=== PATIENT | male | born 1940 | race Caucasian/White ===

== ENCOUNTER 2024-10-04 08:36 | Inpatient (IN) | payer MEDICARE ==
[2024-10-04] MEDS ORDERED: Sodium Chloride 0.9% 10 ML Syringe FLUSH PRN (09:34)
[2024-10-04 09:47] LABS: HEMOGLOBIN 12.6 g/dL (12.9-16.9); MEAN CORPUSCULAR HEMOGLOBIN 30.9 pg (31.6-35.5); MEAN CORPUSCULAR HGB CONC 34.1 g/dL (31.6-35.5); MEAN CORPUSCULAR VOLUME 90.7 fL (81.4-99.0); PLATELET COUNT,PLT 56 K/uL (130-375); RED BLOOD CELL COUNT 4.08 M/uL (4.14-5.76); WHITE BLOOD CELL COUNT,WBC 18.2 K/uL (3.2-11.0)
[2024-10-04] MEDS: Sodium Chloride 0.9% 1,000 ML IV SCH ×2 (09:54→14:47)
[2024-10-04 10:21] LABS: BAND ABSOLUTE MAN 0.91 K/uL; BAND PERCENT MAN 5 % (5-11); LYMPHOCYTES ABSOLUTE MAN 0.18 K/uL (0.8-3.3); LYMPHOCYTES PERCENT MAN 1 % (24-44); NEUTROPHILS ABSOLUTE MAN 17.11 K/uL (1.0-7.6); SEG NEUTROPHILS PERCENT MAN 94 % (36-66)
[2024-10-04 10:24] LABS: A/G RATIO 0.8 (1.2-2.2); ALANINE AMINOTRANSFERASE,ALT 24 U/L (12-78); ALBUMIN 2.9 g/dL (3.4-5.0); ALKALINE PHOSPHATASE 88 U/L (46-116); ASPARTATE AMNIOTRANSFERASE,AST 41 U/L (15-37); BILIRUBIN TOTAL 0.5 mg/dL (0.2-1.0); CALCIUM 8.7 mg/dL (8.5-10.1); CARBON DIOXIDE,CO2 23 mmol/L (21-32); CHLORIDE,CL 93 mmol/L (100-108); ESTIMATED GFR 6 mL/min (>60); GLUCOSE RANDOM 116 mg/dL (74-106); PROTEIN TOTAL,TP 6.4 g/dL (6.4-8.2); SODIUM,NA 127 mmol/L (140-148)
[2024-10-04 10:26] LABS: ANION GAP 17.1 mmol/L (5.0-14.0); POTASSIUM,K 6.1 mmol/L (3.6-5.2)
[2024-10-04 10:28] LABS: BLOOD UREA NITROGEN,BUN 90 mg/dL (7-18)
[2024-10-04 10:29] LABS: CREATININE 7.9 mg/dL (0.8-1.3)
[2024-10-04] MEDS: Lidocaine 2% Jelly 10 ML Urojet MUCMEM ONE (11:03)
[2024-10-04 11:28] LABS: APPEARANCE,URINE SLIGHTLY CLOUDY (CLEAR); BILIRUBIN,URINE NEGATIVE (NEGATIVE); COLOR,URINE YELLOW (YELLOW); GLUCOSE,URINE NEGATIVE (NEGATIVE); KETONES,URINE NEGATIVE (NEGATIVE); LEUKOCYTE ESTERASE,URINE LARGE (NEGATIVE); NITRITE,URINE POSITIVE (NEGATIVE); OCCULT BLOOD,URINE TRACE-INTACT (NEGATIVE); PH,URINE 8.5 (5.0-8.0); PROTEIN,URINE 30 mg/dL (NEGATIVE); UROBILINOGEN,URINE 0.2 EU/dL (0.2-1.0)
[2024-10-04 11:33] LABS: AMORPHOUS SEDIMENT,URINE NOT SEEN; BACTERIA,URINE FEW; EPITHELIAL CELLS,URINE NOT SEEN; MUCUS,URINE NOT SEEN; RBC,URINE 0-5 (0-5); WBC,URINE 20-30 (0-5)
[2024-10-04] MEDS ORDERED: Acetaminophen 325 MG Tab PO PRN (14:38)
[2024-10-04] MEDS ORDERED: Magnesium Hydroxide 400 MG/5 ML Susp 30 ML Cup PO PRN (14:38)
[2024-10-04] MEDS ORDERED: Ondansetron 4 MG Tab.DIS PO PRN (14:38)
[2024-10-04] MEDS ORDERED: Ondansetron 4 MG/2 ML SDV IV PRN (14:38)
[2024-10-04] MEDS ORDERED: Sennosides/Docusate Sodium 50-8.6 MG Tab PO PRN (14:38)
[2024-10-04] MEDS: cefTRIAXone 2 GM in Sodium Chloride 0.9% 50 ML IV SCH (15:18)
[2024-10-04] MEDS: Melatonin 3 MG Tab PO SCH (20:12)
[2024-10-04] MEDS: Latanoprost 0.005% Ophth Soln 2.5 ML Bottle EYEBOTH SCH (20:12)
[2024-10-04] MEDS: Lactobacillus Rhamnosus GG (Probiotic) Cap PO SCH (20:12)
[2024-10-05 05:54] LABS: HEMATOCRIT 33.8 % (38.4-49.7); HEMOGLOBIN 11.3 g/dL (12.9-16.9); MEAN CORPUSCULAR HEMOGLOBIN 30.6 pg (31.6-35.5); MEAN CORPUSCULAR HGB CONC 33.4 g/dL (31.6-35.5); MEAN CORPUSCULAR VOLUME 91.6 fL (81.4-99.0); RED BLOOD CELL COUNT 3.69 M/uL (4.14-5.76); WHITE BLOOD CELL COUNT,WBC 10.1 K/uL (3.2-11.0)
[2024-10-05 06:09] LABS: CALCIUM 8.7 mg/dL (8.5-10.1); CREATININE 1.8 mg/dL (0.8-1.3); EST CRCL DRUG DOSING (CG) 32.93 mL/min; POTASSIUM,K 4.3 mmol/L (3.6-5.2)
[2024-10-05 06:10] LABS: ANION GAP 12.3 mmol/L (5.0-14.0)
[2024-10-05] MEDS: Aspirin 81 MG Tab.EC PO SCH (08:29)
[2024-10-05] MEDS: Sodium Chloride 0.9% 1,000 ML IV SCH (21:26)
[2024-10-06 06:11] LABS: HEMATOCRIT 34.7 % (38.4-49.7); HEMOGLOBIN 11.4 g/dL (12.9-16.9); MEAN CORPUSCULAR HEMOGLOBIN 30.6 pg (31.6-35.5); MEAN CORPUSCULAR HGB CONC 32.9 g/dL (31.6-35.5); MEAN CORPUSCULAR VOLUME 93.3 fL (81.4-99.0); RED BLOOD CELL COUNT 3.72 M/uL (4.14-5.76); WHITE BLOOD CELL COUNT,WBC 6.6 K/uL (3.2-11.0)
[2024-10-06 06:21] LABS: CALCIUM 8.7 mg/dL (8.5-10.1); CREATININE 0.8 mg/dL (0.8-1.3); EST CRCL DRUG DOSING (CG) 74.2 mL/min; POTASSIUM,K 4.3 mmol/L (3.6-5.2)
[2024-10-06 06:38] LABS: ANION GAP 10.3 mmol/L (5.0-14.0)
[2024-10-06] MEDS ORDERED: Haloperidol 1 MG Tab PO PRN (18:11)
== END 2024-10-07 13:15 | disposition home or self-care (01) | DRG 683 ==
LOC: JP.ED 08:36 → JP.MS 13:03
PROVIDERS: ADMIT Internal Medicine; ATTEND Internal Medicine
DX: N17.9 Acute kidney failure, unspecified (principal); N13.8 Other obstructive and reflux uropathy; N30.00 Acute cystitis without hematuria; Z66 Do not resuscitate; E87.5 Hyperkalemia; F02.80 Dementia in other diseases classified elsewhere, unspecified severity, without behavioral disturbance, psychotic disturbance, mood disturbance, and anxiety; G30.9 Alzheimer's disease, unspecified; Z95.2 Presence of prosthetic heart valve; N40.1 Benign prostatic hyperplasia with lower urinary tract symptoms; R33.8 Other retention of urine; N12 Tubulo-interstitial nephritis, not specified as acute or chronic; N42.9 Disorder of prostate, unspecified; Z98.890 Other specified postprocedural states; Z85.828 Personal history of other malignant neoplasm of skin; Z96.659 Presence of unspecified artificial knee joint; Z87.891 Personal history of nicotine dependence; Z79.82 Long term (current) use of aspirin; Z79.899 Other long term (current) drug therapy
CPT/HCPCS: 36415; 51702; 71045 ×2; 80053; 81001; 83605; 83880; 85025; 96360; 96361; 99285; J7030; 80048; 84132; 85027; 87086; 97162-GP; 97530-GP; 99223; 99233; 99238; 99284; A9270-GY; J0696

== ENCOUNTER 2024-10-12 08:50 | Emergency (ER) | payer MEDICARE ==
[2024-10-12 09:54] LABS: BASOPHILS ABSOLUTE AUTO 0.04 K/uL (0.00-0.10); BASOPHILS PERCENT AUTO 0.3 % (0.1-1.3); HEMOGLOBIN 13.2 g/dL (12.9-16.9); IMMATURE GRAN ABSOLUTE AUTO 0.17 K/uL (0.00-0.23); IMMATURE GRAN PERCENT AUTO 1.4 % (0.0-0.7); LYMPHOCYTES ABSOLUTE AUTO 0.72 K/uL (0.8-3.3); LYMPHOCYTES PERCENT AUTO 5.8 % (11.4-47.7); MEAN CORPUSCULAR HEMOGLOBIN 30.6 pg (31.6-35.5); MEAN CORPUSCULAR VOLUME 92.6 fL (81.4-99.0); MONOCYTES ABSOLUTE AUTO 0.54 K/uL (0.20-0.90); MONOCYTES PERCENT AUTO 4.4 % (3.3-12.6); NEUTROPHILS ABSOLUTE AUTO 10.92 K/uL (1.0-7.6); NEUTROPHILS PERCENT AUTO 88.1 % (40.0-78.1); PLATELET COUNT,PLT 247 K/uL (130-375); RED BLOOD CELL COUNT 4.32 M/uL (4.14-5.76); WHITE BLOOD CELL COUNT,WBC 12.4 K/uL (3.2-11.0)
[2024-10-12 10:08] LABS: CREATININE 1.6 mg/dL (0.8-1.3); EST CRCL DRUG DOSING (CG) 38.15 mL/min; POTASSIUM,K 4.9 mmol/L (3.6-5.2)
[2024-10-12 10:10] LABS: APPEARANCE,URINE TURBID (CLEAR); COLOR,URINE RED (YELLOW)
[2024-10-12 10:10] LABS: ANION GAP 11.9 mmol/L (5.0-14.0); INR 1.1; PROTHROMBIN TIME 10.8 sec (9.2-10.6)
[2024-10-12 10:11] LABS: AMORPHOUS SEDIMENT,URINE NOT SEEN; BACTERIA,URINE NOT SEEN; EPITHELIAL CELLS,URINE NOT SEEN; MUCUS,URINE NOT SEEN; RBC,URINE >100 (0-5)
== END 2024-10-12 11:08 | disposition home or self-care (01) ==
LOC: JP.ED 08:50
DX: R31.9 Hematuria, unspecified (principal); I10 Essential (primary) hypertension; Z79.82 Long term (current) use of aspirin; Z79.899 Other long term (current) drug therapy
CPT/HCPCS: 36415; 51702; 80048; 81001; 85025; 85610; 99283

== ENCOUNTER 2024-10-19 19:46 | Emergency (ER) | payer MEDICARE ==
[2024-10-19 21:54] LABS: APPEARANCE,URINE CLOUDY (CLEAR); BILIRUBIN,URINE NEGATIVE (NEGATIVE); GLUCOSE,URINE NEGATIVE (NEGATIVE); KETONES,URINE NEGATIVE (NEGATIVE); LEUKOCYTE ESTERASE,URINE SMALL (NEGATIVE); NITRITE,URINE NEGATIVE (NEGATIVE); OCCULT BLOOD,URINE LARGE (NEGATIVE); PROTEIN,URINE 100 mg/dL (NEGATIVE)
[2024-10-19 22:01] LABS: BASOPHILS ABSOLUTE AUTO 0.04 K/uL (0.00-0.10); BASOPHILS PERCENT AUTO 0.5 % (0.1-1.3); HEMATOCRIT 35.7 % (38.4-49.7); HEMOGLOBIN 11.6 g/dL (12.9-16.9); IMMATURE GRAN ABSOLUTE AUTO 0.03 K/uL (0.00-0.23); IMMATURE GRAN PERCENT AUTO 0.3 % (0.0-0.7); LYMPHOCYTES ABSOLUTE AUTO 0.97 K/uL (0.8-3.3); LYMPHOCYTES PERCENT AUTO 11.1 % (11.4-47.7); MEAN CORPUSCULAR HEMOGLOBIN 30.5 pg (31.6-35.5); MEAN CORPUSCULAR HGB CONC 32.5 g/dL (31.6-35.5); MEAN CORPUSCULAR VOLUME 93.9 fL (81.4-99.0); MONOCYTES ABSOLUTE AUTO 0.73 K/uL (0.20-0.90); MONOCYTES PERCENT AUTO 8.4 % (3.3-12.6); NEUTROPHILS ABSOLUTE AUTO 6.96 K/uL (1.0-7.6); NEUTROPHILS PERCENT AUTO 79.7 % (40.0-78.1); PLATELET COUNT,PLT 188 K/uL (130-375); WHITE BLOOD CELL COUNT,WBC 8.7 K/uL (3.2-11.0)
[2024-10-19 22:09] LABS: AMORPHOUS SEDIMENT,URINE NOT SEEN; BACTERIA,URINE MANY; COLOR,URINE BROWN (YELLOW); EPITHELIAL CELLS,URINE RARE; MUCUS,URINE RARE; RBC,URINE >100 (0-5); WBC,URINE 30-40 (0-5)
[2024-10-19 22:16] LABS: CALCIUM 9.2 mg/dL (8.5-10.1); EST CRCL DRUG DOSING (CG) 61.03 mL/min; POTASSIUM,K 4.3 mmol/L (3.6-5.2)
[2024-10-19 22:17] LABS: ANION GAP 11.3 mmol/L (5.0-14.0)
[2024-10-19] MEDS: Cephalexin 250 MG Cap PO ONE (23:24)
== END 2024-10-20 00:01 | disposition home or self-care (01) ==
LOC: JP.ED 19:46
DX: T83.091A Other mechanical complication of indwelling urethral catheter, initial encounter (principal); I10 Essential (primary) hypertension; Z79.82 Long term (current) use of aspirin; Z79.899 Other long term (current) drug therapy; Y84.6 Urinary catheterization as the cause of abnormal reaction of the patient, or of later complication, without mention of misadventure at the time of the procedure
CPT/HCPCS: 36415; 51702; 80048; 81001; 85025; 87086; 99283; A9270

== ENCOUNTER 2024-10-31 15:37 | Emergency (ER) | payer MEDICARE ==
[2024-10-31] MEDS: LORazepam 2 MG/ML SDV IM ONE (19:28)
[2024-10-31 20:06] LABS: BASOPHILS ABSOLUTE AUTO 0.04 K/uL (0.00-0.10); BASOPHILS PERCENT AUTO 0.8 % (0.1-1.3); EOSINOPHILS ABSOLUTE AUTO 0.04 K/uL (0.00-0.40); EOSINOPHILS PERCENT AUTO 0.8 % (0.0-5.4); IMMATURE GRAN PERCENT AUTO 0.4 % (0.0-0.7); LYMPHOCYTES ABSOLUTE AUTO 1.43 K/uL (0.8-3.3); LYMPHOCYTES PERCENT AUTO 27.2 % (11.4-47.7); MONOCYTES ABSOLUTE AUTO 0.29 K/uL (0.20-0.90); MONOCYTES PERCENT AUTO 5.5 % (3.3-12.6); NEUTROPHILS ABSOLUTE AUTO 3.43 K/uL (1.0-7.6); NEUTROPHILS PERCENT AUTO 65.3 % (40.0-78.1); PLATELET COUNT,PLT 263 K/uL (130-375); RED BLOOD CELL COUNT 3.69 M/uL (4.14-5.76); WHITE BLOOD CELL COUNT,WBC 5.3 K/uL (3.2-11.0)
[2024-10-31 20:08] LABS: IMMATURE GRAN ABSOLUTE AUTO 0.02 K/uL (0.00-0.23)
[2024-10-31] MEDS: diphenhydrAMINE 50 MG/ML SDV IVPUSH ONE (20:14)
[2024-10-31 20:39] LABS: APPEARANCE,URINE CLOUDY (CLEAR); GLUCOSE,URINE NEGATIVE (NEGATIVE); OCCULT BLOOD,URINE LARGE (NEGATIVE)
[2024-10-31 20:46] LABS: EPITHELIAL CELLS,URINE NOT SEEN
[2024-11-01 00:20] LABS: CARBON DIOXIDE,CO2 29.0 mmol/L (21-32); CHLORIDE,CL 101.0 mmol/L (100-108); CREATININE 0.7 mg/dL (0.8-1.3); EST CRCL DRUG DOSING (CG) 87.19 mL/min; ESTIMATED GFR 90.0 mL/min (>60); GLUCOSE RANDOM 103.0 mg/dL (74-106); POTASSIUM,K 4.3 mmol/L (3.6-5.2); SODIUM,NA 136.0 mmol/L (140-148)
[2024-11-01 06:06] LABS: BLOOD UREA NITROGEN,BUN 18.0 mg/dL (7-18)
== END 2024-11-01 11:57 ==
LOC: JP.ED 15:37
DX: T83.091A Other mechanical complication of indwelling urethral catheter, initial encounter (principal); I12.9 Hypertensive chronic kidney disease with stage 1 through stage 4 chronic kidney disease, or unspecified chronic kidney disease; N18.9 Chronic kidney disease, unspecified; Z79.82 Long term (current) use of aspirin; Z79.899 Other long term (current) drug therapy
CPT/HCPCS: 36415; 51702; 74176; 80048; 81001; 85025; 96372; 96374; 96375; 99284; J1200; J1630; J2060

== ENCOUNTER 2024-11-11 14:00 | Emergency (ER) | payer MEDICARE ==
[2024-11-11 15:07] LABS: BASOPHILS ABSOLUTE AUTO 0.03 K/uL (0.00-0.10); BASOPHILS PERCENT AUTO 0.4 % (0.1-1.3); EOSINOPHILS PERCENT AUTO 0.1 % (0.0-5.4); IMMATURE GRAN ABSOLUTE AUTO 0.03 K/uL (0.00-0.23); IMMATURE GRAN PERCENT AUTO 0.4 % (0.0-0.7); LYMPHOCYTES ABSOLUTE AUTO 1.17 K/uL (0.8-3.3); LYMPHOCYTES PERCENT AUTO 15.4 % (11.4-47.7); MONOCYTES ABSOLUTE AUTO 0.58 K/uL (0.20-0.90); MONOCYTES PERCENT AUTO 7.6 % (3.3-12.6); NEUTROPHILS ABSOLUTE AUTO 5.80 K/uL (1.0-7.6); NEUTROPHILS PERCENT AUTO 76.1 % (40.0-78.1); PLATELET COUNT,PLT 165 K/uL (130-375); RED BLOOD CELL COUNT 3.99 M/uL (4.14-5.76); WHITE BLOOD CELL COUNT,WBC 7.6 K/uL (3.2-11.0)
[2024-11-11 15:09] LABS: EOSINOPHILS ABSOLUTE AUTO 0.01 K/uL (0.00-0.40)
[2024-11-11 15:19] LABS: APPEARANCE,URINE TURBID (CLEAR); GLUCOSE,URINE NEGATIVE (NEGATIVE); OCCULT BLOOD,URINE LARGE (NEGATIVE)
[2024-11-11 15:24] LABS: EPITHELIAL CELLS,URINE NOT SEEN
[2024-11-11 15:28] LABS: A/G RATIO 0.9 (1.2-2.2); ALANINE AMINOTRANSFERASE,ALT 25 U/L (12-78); ASPARTATE AMNIOTRANSFERASE,AST 23 U/L (15-37); BILIRUBIN TOTAL 0.6 mg/dL (0.2-1.0); BLOOD UREA NITROGEN,BUN 21 mg/dL (7-18); CARBON DIOXIDE,CO2 29 mmol/L (21-32); CHLORIDE,CL 101 mmol/L (100-108); CREATININE 0.7 mg/dL (0.8-1.3); EST CRCL DRUG DOSING (CG) 87.19 mL/min; ESTIMATED GFR 90 mL/min (>60); GLUCOSE RANDOM 104 mg/dL (74-106); POTASSIUM,K 4.6 mmol/L (3.6-5.2); PROTEIN TOTAL,TP 6.8 g/dL (6.4-8.2); SODIUM,NA 134 mmol/L (140-148)
[2024-11-11] MEDS: cefTRIAXone 1 GM, Lidocaine 1% 2.1 ML IM ONE (16:15)
== END 2024-11-11 17:13 | disposition home or self-care (01) ==
LOC: JP.ED 14:00
DX: N30.01 Acute cystitis with hematuria (principal); I11.0 Hypertensive heart disease with heart failure; I50.9 Heart failure, unspecified; Z79.899 Other long term (current) drug therapy
CPT/HCPCS: 36415; 80053; 81001; 83690; 85025; 87086; 87088; 87186; J0696; J2003; 96372; 99285